=== PATIENT | female | born 1970 | race Caucasian/White ===

== ENCOUNTER → 2016-10-16 | Outpatient (CLI) | payer OTHER ==
--- NOTE | 2016-10-16 20:38 | XR ---
EXAMINATION TYPE: XR lumbar spine 2 or 3V DATE OF EXAM: 10/16/2016 COMPARISON: NONE HISTORY: Back pain TECHNIQUE: 3 views FINDINGS: Vertebra have normal alignment. Disc spaces are normal. Posterior elements are intact. Sacr oiliac joints appear intact. IMPRESSION: Negative lumbar spine exam. Possible right renal calculus.
== END | disposition home or self-care (01) ==
LOC: RADXRMAIN 16:27
PROVIDERS: ATTEND Family Medicine
DX: M54.16 Radiculopathy, lumbar region (principal)
CPT/HCPCS: 72100

== ENCOUNTER → 2018-10-02 | Outpatient (CLI) | payer OTHER ==
--- NOTE | 2018-10-02 10:27 | US ---
EXAMINATION TYPE: US transvaginal DATE OF EXAM: 10/02/2018 COMPARISON: NONE CLINICAL HISTORY: N92.0 Menorrhagia. TECHNIQUE: Transvaginal (TV). Date of LMP: 09/29/2018 EXAM MEASUREMENTS: Uterus: 9.9 x 4.9 x 6.1 cm Endometrial Stripe: 1.1 cm Right Ovary: 2.1 x 1.4 x 1.5 cm Left Ovary: 2.8 x 1.5 x 2.2 cm 1. Uterus: Anteverted wnl 2. Endometrium: wnl 3. Right Ovary: wnl 4. Left Ovary: wnl 5. Bilateral Adnexa: wnl 6. Posterior cul-de-sac: no free fluid IMPRESSION: 1. Normal pelvic ultrasound
--- NOTE | 2018-10-03 11:26 | MM ---
Reason for exam: screening (asymptomatic). Last mammogram was performed 2 years and 9 months ago. History: Took other hormone for 5 years. Physical Findings: A clinical breast exam by your physician is recommended on an annual basis and results should be correlated with mammographic findings. MG 3D Screening Mammo W/Cad Bilateral CC and MLO view(s) were taken. Prior study comparison: January 06, 2016, bilateral MG 3d screening mammo w/cad. There are scattered fibroglandular densities. Asymmetric breast tissue left upper outer quadrant, stable. There is no discrete abnormality. ASSESSMENT: Negative, BI-RAD 1 RECOMMENDATION: Routine screening mammogram of both breasts in 1 year.
== END | disposition home or self-care (01) ==
LOC: RADMAMWWP 09:01
PROVIDERS: ATTEND Obstetrics & Gynecology
DX: Z12.31 Encounter for screening mammogram for malignant neoplasm of breast (principal); N92.0 Excessive and frequent menstruation with regular cycle
CPT/HCPCS: 76830; 77063; 77067

== ENCOUNTER 2020-04-18 13:13 | Emergency (ER) | payer OTHER ==
[2020-04-18 13:38] VITALS: TEMP 98.4
[2020-04-18] MEDS ORDERED: SODIUM CHLORIDE 0.9% 1,000 ML IV STA (14:38)
--- NOTE | 2020-04-18 14:59 | ED ---
General Adult HPI - General Chief complaint: Weakness Stated complaint: weakness/tired Time Seen by Provider: 04/18/20 14:24 Source: patient, RN notes reviewed Mode of arrival: ambulatory Limitations: no limitations - History of Present Illness Initial comments: 50-year-old female presents to the emergency room for a chief complaint of weakness. Patient states that about 10 days ago she developed a sore throat and she was diagnosed with strep. Patient states for about 5 days she took Augmentin. Patient states she started to feel flushed with this and that she may be having an ALLERGIC reaction. She called a telemetry doctor who switched her to amoxicillin who thought this might be less irritating. Patient states she stopped taking it because her throat felt better. Patient states this made her flush as well so she called back and was switched to a Z-Eugenio. This started yesterday. Patient continues to have some generalized weakness and irritated throat. She denies chest pain shortness of breath. 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 ROS Other: All systems not noted in ROS Statement are negative. Past Medical History Past Medical History: Thyroid Disorder History of Any Multi-Drug Resistant Organisms: None Reported Past Surgical History: Cholecystectomy Additional Past Surgical History / Comment(s): labrum repair on both hips Past Psychological History: No Psychological Hx Reported Smoking Status: Never smoker Past Alcohol Use History: None Reported Past Drug Use History: None Reported General Exam Limitations: no limitations General appearance: alert, in no apparent distress Head exam: Present: atraumatic Eye exam: Present: normal appearance, PERRL, EOMI. Absent: scleral icterus, conjunctival injection, periorbital swelling ENT exam: Present: normal exam, normal oropharynx (Uvula midline, no exudates bilaterally), mucous membranes moist, TM's normal bilaterally, normal external ear exam Neck exam: Present: normal inspection, full ROM. Absent: tenderness, meningismus, lymphadenopathy Respiratory exam: Present: normal lung sounds bilaterally. Absent: respiratory distress, wheezes, rales, rhonchi, stridor Cardiovascular Exam: Present: regular rate, normal rhythm, normal heart sounds. Absent: systolic murmur, diastolic murmur, rubs, gallop, clicks GI/Abdominal exam: Present: soft, normal bowel sounds. Absent: distended, tenderness, guarding, rebound, rigid Course Vital Signs 04/18/20 04/18/20 04/18/20 13:35 15:08 16:14 Temperature 98.4 F Pulse Rate 96 101 H 85 Respiratory 20 18 18 Rate Blood Pressure 124/85 130/79 135/85 O2 Sat by Pulse 99 100 98 Oximetry EKG Findings - EKG Comments: EKG Findings:: Normal sinus rhythm, ventricular rate 95, NM interval 148, QTC 42 9 Medical Decision Making - Medical Decision Making Vitals are stable. Patient is well appearing. She does not appear toxic. She is resting comfortably. EKG is nonischemic. His CBC is unremarkable. CMP unremarkable. Urinalysis does not show evidence of infection. Heterophile negative. Chest x-ray shows no acute cardiopulmonary process. Patient does request a TSH be added, she will call back tomorrow for these results. She'll return here for any worsening symptoms. - Lab Data Result diagrams: 04/18/20 15:05 04/18/20 15:05 Lab Results 04/18/20 04/18/20 04/18/20 Range/Units 15:05 15:05 15:05 WBC 11.0 H (3.8-10.6) k/uL RBC 5.06 (3.80-5.40) m/uL Hgb 12.9 (11.4-16.0) gm/dL Hct 39.1 (34.0-46.0) % MCV 77.3 L (80.0-100.0) fL MCH 25.4 (25.0-35.0) pg MCHC 32.9 (31.0-37.0) g/dL RDW 16.5 H (11.5-15.5) % Plt Count 300 (150-450) k/uL MPV 6.8 Neutrophils % 67 % Lymphocytes % 24 % Monocytes % 5 % Eosinophils % 1 % Basophils % 1 % Neutrophils # 7.4 (1.3-7.7) k/uL Lymphocytes # 2.6 (1.0-4.8) k/uL Monocytes # 0.6 (0-1.0) k/uL Eosinophils # 0.1 (0-0.7) k/uL Basophils # 0.1 (0-0.2) k/uL Anisocytosis Slight Microcytosis Slight Sodium 137 (137-145) mmol/L Potassium 4.1 (3.5-5.1) mmol/L Chloride 107 (98-107) mmol/L Carbon Dioxide 24 (22-30) mmol/L Anion Gap 6 mmol/L BUN 10 (7-17) mg/dL Creatinine 0.67 (0.52-1.04) mg/dL Est GFR (CKD-EPI)AfAm >90 (>60 ml/min/1.73 sqM) Est GFR (CKD-EPI)NonAf >90 (>60 ml/min/1.73 sqM) Glucose 100 H (74-99) mg/dL Calcium 9.5 (8.4-10.2) mg/dL Magnesium 2.3 (1.6-2.3) mg/dL Total Bilirubin 0.4 (0.2-1.3) mg/dL AST 26 (14-36) U/L ALT 36 H (4-34) U/L Alkaline Phosphatase 86 (38-126) U/L Total Protein 7.1 (6.3-8.2) g/dL Albumin 4.1 (3.5-5.0) g/dL Urine Color Light Yellow Urine Appearance Clear (Clear) Urine pH 6.0 (5.0-8.0) Ur Specific [place] 1.008 (1.001-1.035) Urine Protein Negative (Negative) Urine Glucose (UA) Negative (Negative) Urine Ketones Negative (Negative) Urine Blood Negative (Negative) Urine Nitrite Negative (Negative) Urine Bilirubin Negative (Negative) Urine Urobilinogen <2.0 (<2.0) mg/dL Ur Leukocyte Esterase Negative (Negative) Heterophile Antibody (Negative) 04/18/20 Range/Units 15:05 WBC (3.8-10.6) k/uL RBC (3.80-5.40) m/uL Hgb (11.4-16.0) gm/dL Hct (34.0-46.0) % MCV (80.0-100.0) fL MCH (25.0-35.0) pg MCHC (31.0-37.0) g/dL RDW (11.5-15.5) % Plt Count (150-450) k/uL MPV Neutrophils % % Lymphocytes % % Monocytes % % Eosinophils % % Basophils % % Neutrophils # (1.3-7.7) k/uL Lymphocytes # (1.0-4.8) k/uL Monocytes # (0-1.0) k/uL Eosinophils # (0-0.7) k/uL Basophils # (0-0.2) k/uL Anisocytosis Microcytosis Sodium (137-145) mmol/L Potassium (3.5-5.1) mmol/L Chloride (98-107) mmol/L Carbon Dioxide (22-30) mmol/L Anion Gap mmol/L BUN (7-17) mg/dL Creatinine (0.52-1.04) mg/dL Est GFR (CKD-EPI)AfAm (>60 ml/min/1.73 sqM) Est GFR (CKD-EPI)NonAf (>60 ml/min/1.73 sqM) Glucose (74-99) mg/dL Calcium (8.4-10.2) mg/dL Magnesium (1.6-2.3) mg/dL Total Bilirubin (0.2-1.3) mg/dL AST (14-36) U/L ALT (4-34) U/L Alkaline Phosphatase (38-126) U/L Total Protein (6.3-8.2) g/dL Albumin (3.5-5.0) g/dL Urine Color Urine Appearance (Clear) Urine pH (5.0-8.0) Ur Specific [place] (1.001-1.035) Urine Protein (Negative) Urine Glucose (UA) (Negative) Urine Ketones (Negative) Urine Blood (Negative) Urine Nitrite (Negative) Urine Bilirubin (Negative) Urine Urobilinogen (<2.0) mg/dL Ur Leukocyte Esterase (Negative) Heterophile Antibody Negative (Negative) Disposition Clinical Impression: Weakness, Pharyngitis Disposition: HOME SELF-CARE Condition: Good Instructions (If sedation given, give patient instructions): Weakness (ED) Additional Instructions: Please take antibiotic as directed. Follow-up with your doctor in one to 2 days. Follow up on TSH results by calling tomorrow to speak to the follow-up vickie cabrera. Return to the emergency room for any worsening symptoms. Is patient prescribed a controlled substance at d/c from ED?: No Referrals: Blair Sarmiento DO [Primary Care Provider] - 1-2 days Time of Disposition: 16:29
[2020-04-18 15:09] VITALS: RESP 18
[2020-04-18 15:23] LABS: Anisocytosis Slight; Basophils # (A) 0.1 k/uL (0-0.2); Basophils % (A) 1 %; Eosinophils # (A) 0.1 k/uL (0-0.7); Eosinophils % (A) 1 %; HCT 39.1 % (34.0-46.0); HGB 12.9 gm/dL (11.4-16.0); Lymphocytes # (A) 2.6 k/uL (1.0-4.8); Lymphocytes % (A) 24 %; MCH 25.4 pg (25.0-35.0); MCHC 32.9 g/dL (31.0-37.0); MCV 77.3 fL (80.0-100.0); Mean Platelet Volume 6.8; Microcytosis Slight; Monocytes # (A) 0.6 k/uL (0-1.0); Monocytes % (A) 5 %; Neutrophils # (A) 7.4 k/uL (1.3-7.7); Neutrophils % (A) 67 %; Platelet Count 300 k/uL (150-450); RBC 5.06 m/uL (3.80-5.40); RDW 16.5 % (11.5-15.5)
[2020-04-18 15:25] LABS: Appearance,Urine Clear (Clear); Bilirubin,Urine Negative (Negative); Blood,Urine Negative (Negative); Color,Urine Light Yellow; Glucose,Urine (UA) Negative (Negative); Ketones,Urine Negative (Negative); Leukocyte Esterase,Urine Negative (Negative); Nitrite,Urine Negative (Negative); Protein,Urine Negative (Negative); Specific Gravity,Urine 1.008 (1.001-1.035); Urobilinogen,Urine <2.0 mg/dL (<2.0)
[2020-04-18 15:28] LABS: ALT 36 U/L (4-34); AST 26 U/L (14-36); African American GFR (CKD) >90 (>60 ml/min/1.73 sqM); Albumin 4.1 g/dL (3.5-5.0); Alkaline Phosphatase 86 U/L (38-126); Anion Gap 6 mmol/L; Blood Urea Nitrogen 10 mg/dL (7-17); Calcium 9.5 mg/dL (8.4-10.2); Carbon Dioxide 24 mmol/L (22-30); Chloride 107 mmol/L (98-107); Glucose 100 mg/dL (74-99); Magnesium 2.3 mg/dL (1.6-2.3); Non-African American GFR(CKD) >90 (>60 ml/min/1.73 sqM); Potassium 4.1 mmol/L (3.5-5.1); Sodium 137 mmol/L (137-145); Total Bilirubin 0.4 mg/dL (0.2-1.3); Total Protein 7.1 g/dL (6.3-8.2)
--- NOTE | 2020-04-18 15:31 | XR ---
EXAMINATION TYPE: XR chest 2V DATE OF EXAM: 04/18/2020 COMPARISON: NONE HISTORY: Chest pain TECHNIQUE: Frontal and lateral views of the chest are obtained. FINDINGS: There is no focal air space opacity. No evidence for pneumothorax. No pleural effusion. The cardiac silhouette size is within normal limits. The osseous structures are grossly intact. IMPRESSION: 1. No acute cardiopulmonary process.
[2020-04-18 16:17] VITALS: BP 135/85; PULSE 85
[2020-04-19 02:13] LABS: T4, Free (Free Thyroxine) 1.14 ng/dL (0.78-2.19)
== END 2020-04-18 16:45 | disposition home or self-care (01) ==
LOC: EC 13:13
DX: J02.9 Acute pharyngitis, unspecified (principal); R53.1 Weakness; E07.9 Disorder of thyroid, unspecified; Z79.890 Hormone replacement therapy; Z88.0 Allergy status to penicillin; Z88.1 Allergy status to other antibiotic agents; Z90.49 Acquired absence of other specified parts of digestive tract
CPT/HCPCS: 36415; 71046; 80053; 81003; 83735; 84439; 84443; 85025; 86308; 93005; 96360; 99285

== ENCOUNTER → 2021-03-16 | Outpatient (CLI) | payer OTHER ==
--- NOTE | 2021-03-17 08:10 | US ---
EXAMINATION TYPE: US transvaginal DATE OF EXAM: 03/16/2021 COMPARISON: US 2019 CLINICAL HISTORY: N93.8 DUB. Bleeding x couple weeks, 4, para 4, history of tubal ligation TECHNIQUE: Transvaginal exam only per ordering physician Date of LMP: 02/28/2021 EXAM MEASUREMENTS: Uterus: 8.7 x 4.2 x 5.5 cm Endometrial Stripe: 1.1 cm Right Ovary: 2.5 x 1.8 x 2.2 cm Left Ovary: 2.2 x 0.8 x 1.0 cm 1. Uterus: anteverted, mildly heterogeneous 2. Endometrium: appears wnl 3. Right Ovary: 1.2cm dominant follicle 4. Left Ovary: wnl 5. Bilateral Adnexa: wnl 6. Posterior cul-de-sac: wnl IMPRESSION: No definite sonographic abnormality is identified.
== END | disposition home or self-care (01) ==
LOC: RADUSWWP 15:20
PROVIDERS: ATTEND Obstetrics & Gynecology
DX: N93.8 Other specified abnormal uterine and vaginal bleeding (principal)
CPT/HCPCS: 76830

== ENCOUNTER → 2021-07-25 | Outpatient (CLI) | payer OTHER ==
--- NOTE | 2021-07-26 08:35 | MM ---
Reason for exam: screening (asymptomatic). Last mammogram was performed 2 years and 10 months ago. History: Took other hormone for 5 years. Physical Findings: A clinical breast exam by your physician is recommended on an annual basis and results should be correlated with mammographic findings. MG 3D Screening Mammo W/Cad Bilateral CC and MLO view(s) were taken. Prior study comparison: October 02, 2018, bilateral MG 3d screening mammo w/cad. January 06, 2016, bilateral MG 3d screening mammo w/cad. There are scattered fibroglandular densities. There is no discrete abnormality. ASSESSMENT: Negative, BI-RAD 1 RECOMMENDATION: Routine screening mammogram of both breasts in 1 year.
== END | disposition home or self-care (01) ==
LOC: RADMAMWWP 11:00
PROVIDERS: ATTEND Obstetrics & Gynecology
DX: Z12.31 Encounter for screening mammogram for malignant neoplasm of breast (principal)
CPT/HCPCS: 77063; 77067

== ENCOUNTER 2021-10-13 08:40 | Day surgery (SDC) | payer OTHER ==
[2021-10-11 12:07] VITALS: BMI 33.2
[~2021-10-13 08:40] MED LIST: LACTATED RINGERS 1,000 ML IV SCH; LIDOCAINE 1% (10MG/ML) FOR IV START INTRADERMA PRN
[2021-10-13 09:22] VITALS: TEMP 98.2
[2021-10-13] MEDS ORDERED: ONDANSETRON 4 MG/2 ML VIAL ONE (09:29)
[2021-10-13] MEDS ORDERED: ONDANSETRON 4 MG/2 ML VIAL IVP ONE (09:36)
[2021-10-13] MEDS ORDERED: PROPOFOL 10 MG/ML 20 ML VIAL IV ONE (09:37)
[2021-10-13] MEDS ORDERED: MIDAZOLAM 2 MG/2 ML VIAL ONE (09:37)
[2021-10-13] MEDS ORDERED: fentaNYL (PF) 50 MCG/ML 2 ML AMP ONE (09:37)
--- NOTE | 2021-10-13 09:42 | P.HPIHPCON ---
History of Present Illness H&P Date: 10/13/21 51-year-old female presents today for screening colonoscopy. She has never had a colonoscopy previously. She denies history of colon cancer. She denies any family history of Crohn's disease, ulcerative colitis and colon cancer. Denies blood in her stool. Consent for Procedure: I have explained the operation/procedure to the patient, including the risks, benefits, side effects, alternative therapies (including not receiving the proposed treatment or service), the likelihood of the patient achieving his/her goals, and potential recuperation problems for the procedure/sedation/analgesia, as well as any blood products, if indicated. I also explained to the patient the risks, benefits and side effects of the alternatives, as well as the risks related to not receiving the proposed procedure, care, treatment, or services. - Review of Systems All systems: negative Past Medical History Past Medical History: Thyroid Disorder History of Any Multi-Drug Resistant Organisms: None Reported Past Surgical History: Cholecystectomy, Tubal Ligation Additional Past Surgical History / Comment(s): labrum repair on both hips Past Anesthesia/Blood Transfusion Reactions: No Reported Reaction Smoking Status: Never smoker - Past Family History Mother Family Medical History: No Reported History Medications and Allergies Home Medications Medication Instructions Recorded Confirmed Type Levothyroxine Sodium [Synthroid] 75 mcg PO DAILY 04/18/20 10/11/21 History Thyroid,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 No significant issues noted on an osteopathic structural exam other than those noted in the History and Physical/Consult. Vital Signs Temp Pulse Resp BP Pulse Ox 98.2 F 92 16 143/80 98 10/13/21 09:10 10/13/21 09:10 10/13/21 09:10 10/13/21 09:10 10/13/21 09:10 - General no distress - Eyes normal ocular movement - Neck trachea midline - Respiratory normal respiratory effort - Abdomen Abdomen: soft, non tender Assessment and Plan Plan: 51-year-old female presents for screening colonoscopy. Risks, benefits and alternatives were provided. Further recommendations after procedure.
--- NOTE | 2021-10-13 09:56 | P.PCN ---
Date of Procedure: 10/13/21 Preoperative Diagnosis: Screening Postoperative Diagnosis: Diverticulosis Procedure(s) Performed: Colonoscopy Anesthesia: MAC Surgeon: Cari Arita Pathology: none sent Condition: stable Disposition: same day Indications for Procedure: 51-year-old female presents today for screening colonoscopy. She denies any blood in her stool. Denies any family history of colon cancer. She has never had a colonoscopy previously. Operative Findings: Diverticulosis Description of Procedure: The patient was brought into the endoscopy suite and placed in left lateral decubitus position and adequate sedation was achieved using conscious sedation. A digital rectal exam was performed and mild internal hemorrhoids were palpated. An endoscope was then placed in the rectum and advanced to the cecum as identified by landmarks including the appendiceal orifice and the ileocecal valve. The prep was good. The colonoscope was then slowly withdrawn, examining for any mucosal abnormality. The cecum, ascending, transverse, descending and sigmoid colon were visualized adequately. There were no large neoplastic lesions throughout the colon. There is no obvious polyps noted throughout the colon. There is mild amount of diverticulosis in the sigmoid colon. Retroflexion was performed in the rectum and internal hemorrhoids were visible. Excess air was removed, the colonoscope withdrawn and the procedure terminated. The patient was then transferred to the recovery unit in stable condition. Repeat colonoscopy should be performed in 10 years.
[2021-10-13 10:20] VITALS: BP 110/73; PULSE 96; RESP 18
== END 2021-10-13 10:50 | disposition home or self-care (01) ==
LOC: ORWHC2ENDO 08:40
PROVIDERS: ATTEND Surgery
DX: Z12.11 Encounter for screening for malignant neoplasm of colon (principal); K57.30 Diverticulosis of large intestine without perforation or abscess without bleeding; K64.8 Other hemorrhoids; E07.9 Disorder of thyroid, unspecified; Z79.890 Hormone replacement therapy; Z88.0 Allergy status to penicillin; Z90.49 Acquired absence of other specified parts of digestive tract; Z98.51 Tubal ligation status; Z98.890 Other specified postprocedural states
CPT/HCPCS: 81025; J2250; J2405; J3010; J2704; G0121; 45378

== ENCOUNTER → 2023-03-22 | Outpatient (CLI) | payer OTHER ==
--- NOTE | 2023-03-24 07:42 | CT ---
EXAMINATION TYPE: CT sinus wo con DATE OF EXAM: 03/22/2023 COMPARISON: None HISTORY: Chronic sinusitis and congestion. Had polyp removal along with surgery for deviated septum [address] DLP: 410.1 mGycm. Automated Exposure Control for Dose Reduction was Utilized. TECHNIQUE: CT scan of the sinuses is performed without contrast, axial images are obtained, coronal r eformatted images are also reviewed. FINDINGS: There are postsurgical changes with partial ethmoidectomy frontal ethmoid air cells. Paranasal sinuses are well aerated and there is no air-fluid level, mucous retention cysts, polyp or mucosal thickening to suggest acute or chronic sinusitis. The nasal cavity is intact. The ostiomeatal complexes are patent. There is no sclerosis or thinning of the osseous roland of the paranasal sinuses. Intraorbital contents appear grossly normal. The mastoid air cells and middle ear cavities are well aerated. IMPRESSION: Postsurgical changes involving the ethmoid sinuses. There is no acute or chronic sinusitis.
== END | disposition home or self-care (01) ==
LOC: RADCTMAIN 17:24
PROVIDERS: ATTEND Otolaryngology
DX: J32.0 Chronic maxillary sinusitis (principal); Z98.890 Other specified postprocedural states
CPT/HCPCS: 70486

== ENCOUNTER → 2023-10-14 | Outpatient (CLI) | payer OTHER ==
--- NOTE | 2023-10-14 11:09 | US ---
EXAMINATION TYPE: US abdomen complete DATE OF EXAM: 10/14/2023 COMPARISON: NONE CLINICAL INDICATION: Female, 53 years old with history of R10.11 ABD PAIN; RUQ pain gallbladder remov ed. TECHNIQUE: Multiple sonographic images of the abdomen are obtained. FINDINGS: EXAM MEASUREMENTS: Liver Length: 13.7 cm Gallbladder Wall: Surgically absent CBD: .5 cm Spleen: 9.8 cm Right Kidney: 10.3 x 3.6 x 4.3 cm Left Kidney: 9.7 x 4.7 x 3.8 cm EMPLOYMENT SERVICES DIRECTOR NOTES: Pancreas: Obscured by bowel gas Liver: Increased attenuation Gallbladder: Surgically absent CBD: wnl Spleen: wnl Right Kidney: No hydronephrosis or masses seen Left Kidney: No hydronephrosis or masses seen Upper IVC: wnl Abd Aorta: wnl The liver demonstrates slightly increased diffuse echogenicity. No evidence for focal lesion. Noncirr hotic morphology. The intrahepatic portion of the IVC and proximal abdominal aorta are within normal limits. The gallbladder is surgically absent. Common bile duct is unremarkable. The pancreas is obsc ured by overlying bowel gas. The spleen is unremarkable. Kidneys are symmetric and free of hydroneph rosis. No renal lesions are seen. No nephrolithiasis. IMPRESSION: 1. No ultrasound evidence for acute process. 2. Post cholecystectomy changes. 3. Hepatic steatosis.
== END | disposition home or self-care (01) ==
LOC: RADUSWWP 09:26
PROVIDERS: ATTEND Family Medicine
DX: K76.0 Fatty (change of) liver, not elsewhere classified (principal); Z90.49 Acquired absence of other specified parts of digestive tract
CPT/HCPCS: 76700

== ENCOUNTER 2024-03-16 07:59 | Day surgery (SDC) | payer OTHER ==
[2024-03-16] MEDS: IV FLUID CONTINUATION 1,000 ML IV ONE (08:38)
[2024-03-16 08:40] VITALS: RESP 16; TEMP 97
[2024-03-16] MEDS: LACTATED RINGERS 1,000 ML IV SCH (08:41)
[2024-03-16] MEDS ORDERED: PROPOFOL 10 MG/ML 20 ML VIAL IV ONE (08:50)
[2024-03-16] MEDS ORDERED: LIDOCAINE 2% (PF) 20 MG/ML 5 ML VIAL ONE (08:50)
[2024-03-16 09:35] VITALS: BP 106/78; PULSE 69
--- NOTE | 2024-03-16 13:13 | P.OP ---
Date of Procedure: 03/16/24 Preoperative Diagnosis: GERD Postoperative Diagnosis: 1. Gastritis 2. Hiatal Hernia Procedure(s) Performed: EGD with Cold Biopsy Anesthesia: other (Sedation) Surgeon: Fermin Puente Pathology: other (Antral Biopsies) Condition: stable Disposition: PACU Description of Procedure: Informed consent was obtained. The procedure, its risks, benefits, and alternatives were discussed. The patient was placed in the left lateral decubitus position.. The patient was sedated by anesthesia. The endoscope was inserted into the oropharynx and guided under direct vision into the esophagus, stomach, and duodenum. The duodenal bulb and second portion were unremarkable. The scope was withdrawn to the stomach and retroflexed. There was no increased fluid, food or secretions in the upper gastrointestinal tract. There was some gastritis appreciated. Biopsies were obtained for Helicobacter pylori. No erosions or ulcers. The scope was withdrawn to the esophagus. No Barretts or esophagitis. There was a hiatal hernia appreciated. The patient tolerated the procedure very well. The patient was then transferred to the recovery area in good condition. There were no apparent complications.
== END 2024-03-16 09:54 | disposition home or self-care (01) ==
LOC: ORWHC2ENDO 07:59
PROVIDERS: ATTEND Surgery
DX: K21.9 Gastro-esophageal reflux disease without esophagitis (principal); K29.70 Gastritis, unspecified, without bleeding; K44.9 Diaphragmatic hernia without obstruction or gangrene; E03.9 Hypothyroidism, unspecified; Z79.890 Hormone replacement therapy; Z98.51 Tubal ligation status; Z90.49 Acquired absence of other specified parts of digestive tract; Z98.890 Other specified postprocedural states; Z88.1 Allergy status to other antibiotic agents; Z88.0 Allergy status to penicillin
CPT/HCPCS: 81025; 43239; J2704; J2003; 88305

== ENCOUNTER 2024-04-06 18:47 | Emergency (ER) | payer OTHER ==
--- NOTE | 2024-04-06 20:41 | ED ---
General Adult HPI - General Chief complaint: Arrhythmia/Palpitations Stated complaint: Heart Palpitations Time Seen by Provider: 04/06/24 19:06 Source: patient Mode of arrival: ambulatory Limitations: no limitations - History of Present Illness Initial comments: Dictation was produced using [employer] dictation software. please excuse any grammatical, word or spelling errors. Chief Complaint: 54-year-old female presents emergency department with fever, c onstitutional symptoms palpitations and headache History of Present Illness: Patient is 54-year-old female presents with multiple complaints. States that her symptoms initially began the day before . She started to have fevers. She also had a mild cough. States that her symptoms abated for couple days and today it returned. States that she has a mild nonsevere headache. States that she feels congested in the nose. Denies any burning urination. No chest pain. She does have a mild cough. No obvious sick contacts. D denies abdominal pain or diarrhea. Patient also reported having had a bout of palpitations last night that lasted for couple seconds with a heart rate up to 140. The ROS documented in this emergency department record has been reviewed and confirmed by me. Those systems with pertinent positive or negative responses have been documented in the HPI. All other systems are other negative and/or noncontributory. - Related Data Home Medications Medication Instructions Recorded Confirmed Levothyroxine Sodium [Synthroid] 75 mcg PO DAILY 04/18/20 04/06/24 Thyroid,Pork [Process Tank Tender Thyroid] 30 mg PO DAILY 04/18/20 04/06/24 Previous Rx's Medication Instructions Recorded Doxycycline [Vibramycin] 100 mg PO BID 5 Days #10 capsule 04/06/24 Allergies Allergy/AdvReac Type Severity Reaction Status Date / Time levofloxacin [From Levaquin] Allergy Unknown Verified 04/06/24 20:18 amoxicillin AdvReac WEAKNESS, Verified 04/06/24 20:18 CAN'T STAND clavulanic acid AdvReac WEKNESS Verified 04/06/24 20:18 [From Augmentin] AND CAN'T STAND Review of Systems ROS Statement: Those systems with pertinent positive or pertinent negative responses have been documented in the HPI. ROS Other: All systems not noted in ROS Statement are negative. Past Medical History Past Medical History: Thyroid Disorder History of Any Multi-Drug Resistant Organisms: None Reported Past Surgical History: Cholecystectomy, Orthopedic Surgery, Tubal Ligation Additional Past Surgical History / Comment(s): labrum repair on both hips, sinus polyp removed Past Anesthesia/Blood Transfusion Reactions: No Reported Reaction Past Psychological History: No Psychological Hx Reported Smoking Status: Never smoker Past Alcohol Use History: None Reported Past Drug Use History: None Reported - Past Family History Mother Family Medical History: No Reported History General Exam - General Exam Comments Initial Comments: PHYSICAL EXAM: General Impression: Alert and oriented x3, not in acute distress HEENT: Normocephalic atraumatic, extra-ocular movements intact, pupils equal and reactive to light bilaterally, mucous membranes moist. Cardiovascular: Heart regular rate and rhythm Chest: Able to complete full sentences, no retractions, no tachypnea Abdomen: abdomen soft, non-tender, non-distended, no organomegaly Musculoskeletal: Pulses present and equal in all extremities, no peripheral edema Motor: no focal deficits noted Neurological: CN II-XII grossly intact, no focal motor or sensory deficits noted Skin: Intact with no visualized rashes Psych: Normal affect and mood Limitations: no limitations Course Vital Signs 04/06/24 04/06/24 04/06/24 18:55 20:00 21:00 Temperature 97.7 F Pulse Rate 86 75 85 Respiratory 18 24 22 Rate Blood Pressure 113/77 111/65 112/55 O2 Sat by Pulse 96 96 97 Oximetry 04/06/24 22:00 Temperature Pulse Rate 79 Respiratory 16 Rate Blood Pressure 110/57 O2 Sat by Pulse 98 Oximetry EKG Findings - EKG Comments: EKG Findings:: My EKG interpretation: Ventricular rate 83, sinus rhythm,. 174, QRS 80, QTc 4 9. No IA prolongation, no QTC prolongation, no ST or T-wave changes noted. Overall, this EKG is unremarkable Medical Decision Making - Medical Decision Making Was pt. sent in by a medical professional or institution (, PA, TRAVELING SALES REPRESENTATIVE, urgent c are, hospital, or [facility]...) When possible be specific @ -No Did you speak to anyone other than the patient for history (EMS, parent, family, police, friend...)? What history was obtained from this source @ -No Did you review nursing and triage notes (agree or disagree)? Why? @ -I reviewed and agree with nursing and triage notes Were old charts reviewed (outside hosp., previous admission, EMS record, old EKG, old radiological studies, urgent care reports/EKG's, [facility] records)? Report findings @ -No old charts were reviewed Differential Diagnosis (chest pain, altered mental status, abdominal pain women, abdominal pain men, vaginal bleeding, musculoskeletal, weakness, fever, dyspnea, syncope, headache, dizziness, GI bleed, back pain, seizure, CVA, palpatations, mental health)? @ -Differential Fever: Pneumonia, viral URI, endocarditis, myocarditis, pericarditis, otitis, sinusitis, peritonsillar Abscess, retropharyngeal Abscess, epiglottitis, peritonitis, appendicitis, [place] cystitis, diverticulitis, hepatitis, colitis, UTI, PID, TOA, pyelonephritis, prostatitis, epididymitis, meningitis, encephalitis, pulmonary embolism, CVA, thyroid storm, pancreatitis, adrenal crisis, cavernous sinus thrombosis, this is not meant to be an all-inclusive list. EKG interpreted by me (3pts min.). @ -See above X-rays interpreted by me (1pt min.). @ -Chest x-ray nonacute CT interpreted by me (1pt min.). @ -CT brain negative U/S interpreted by me (1pt. min.). @ -None done What testing was considered but not performed or refused? (CT, X-rays, U/S, labs)? Why? @ -None What meds were considered but not given or refused? Why? @ -None Was smoking cessation discussed for >3mins.? @ -No Were there social determinants of health that impacted care today? How? (Homelessness, low income, unemployed, alcoholism, drug addiction, transportation, low edu. Level, literacy, decrease access to med. care, fdc, rehab)? @ -No Was there de-escalation of care discussed even if they declined (Discuss DNR or withdrawal of care, Hospice)? DNR status @ -No What co-morbidities impacted this encounter? (DM, HTN, Smoking, COPD, CAD, Cancer, CVA, ARF, Chemo, Hep., AIDS, mental health diagnosis, sleep apnea, morbid obesity)? @ -None Was patient admitted / discharged? Hospital course, mention meds given and route, prescriptions, significant lab abnormalities, going to OR and other pertinent info. @ -54-year-old female with multiple complaints including heart palpitations, fever, nasal congestion, headache and fevers. Vital signs upon arrival are within acceptable limits. Physical examination is benign. Laboratory evaluation is unremarkable. CT brain negative for acute intracranial processes. Chest x-ray nonacute. Patient does have symptoms concerning for sinusitis she also has sinus disease noted on her CT of her brain. Patient prescription for antibiotics. Patient feeling significantly better after Toradol and IV fluids. Patient told to follow-up with her primary care doctor. Did you discuss the management of the patient with other professionals (tiara quiñones i.e. , PA, TRAVELING SALES REPRESENTATIVE, lab, RT, psych nurse, social worker delinquency prevention, emission specialist, teacher, border patrol officer, gearcase assembler)? Give summary @ -No Was critical care preformed (if so, how long)? @ -No Undiagnosed new problem with uncertain prognosis? @ -No Drug Therapy requiring intensive monitoring for toxicity (Heparin, Nitro, Insulin, Cardizem)? @ -No Were any procedures done? @ -No Diagnosis/symptom? Acute, or Chronic, or Acute on Chronic? Uncomplicated (without systemic symptoms) or Complicated (systemic symptoms)? @ -Sinusitis Side effects of treatment? @ -No Exacerbation, Progression, or Severe Exacerbation? @ -No Poses a threat to life or bodily function? How? (Chest pain, [place], [place], pneumonia, PE, COPD, DKA, ARF, appy, cholecystitis, CVA, Diverticulitis, Homicidal, Suicidal, threat to staff... and all critical care pts) @ -No - Lab Data Result diagrams: 04/06/24 19:30 04/06/24 19:30 Lab Results 04/06/24 04/06/24 04/06/24 Range/Units 19:30 19:30 19:30 WBC 5.2 (3.8-10.6) k/uL RBC 5.65 H (3.80-5.40) m/uL Hgb 14.8 (11.4-16.0) gm/dL Hct 45.2 (34.0-46.0) % MCV 80.0 (80.0-100.0) fL MCH 26.2 (25.0-35.0) pg MCHC 32.8 (31.0-37.0) g/dL RDW 15.6 H (11.5-15.5) % Plt Count 119 L (150-450) k/uL MPV 8.7 Neutrophils % 69 % Lymphocytes % 23 % Monocytes % 4 % Eosinophils % 0 % Basophils % 1 % Neutrophils # 3.6 (1.3-7.7) k/uL Lymphocytes # 1.2 (1.0-4.8) k/uL Monocytes # 0.2 (0-1.0) k/uL Eosinophils # 0.0 (0-0.7) k/uL Basophils # 0.0 (0-0.2) k/uL PT 10.5 (10.0-12.5) sec INR 0.9 (<1.2) APTT 26.7 (22.0-30.0) sec Sodium 135 L (137-145) mmol/L Potassium 3.4 L (3.5-5.1) mmol/L Chloride 101 (98-107) mmol/L Carbon Dioxide 28 (22-30) mmol/L Anion Gap 6 mmol/L BUN 12 (7-17) mg/dL Creatinine 0.67 (0.52-1.04) mg/dL Est GFR (CKD-EPI)AfAm >90 (>60 ml/min/1.73 sqM) Est GFR (CKD-EPI)NonAf >90 (>60 ml/min/1.73 sqM) Glucose 114 H (74-99) mg/dL Calcium 9.2 (8.4-10.2) mg/dL Magnesium 1.9 (1.6-2.3) mg/dL Total Bilirubin 0.6 (0.2-1.3) mg/dL AST 85 H (14-36) U/L ALT 112 H (4-34) U/L Alkaline Phosphatase 127 H (38-126) U/L Troponin I (0.000-0.034) ng/mL Total Protein 6.6 (6.3-8.2) g/dL Albumin 3.9 (3.5-5.0) g/dL Urine Color Urine Appearance (Clear) Urine pH (5.0-8.0) Ur Specific [place] (1.001-1.035) Urine Protein (Negative) Urine Glucose (UA) (Negative) Urine Ketones (Negative) Urine Blood (Negative) Urine Nitrite (Negative) Urine Bilirubin (Negative) Urine Urobilinogen (<2.0) mg/dL Ur Leukocyte Esterase (Negative) Urine RBC (0-5) /hpf Urine WBC (0-5) /hpf Ur Squamous Epith Cells (0-4) /hpf Urine Mucus (None) /hpf Influenza Type A (PCR) (Not Detectd) Influenza Type B (PCR) (Not Detectd) RSV (PCR) (Not Detectd) SARS-CoV-2 (PCR) (Not Detectd) 04/06/24 04/06/24 04/06/24 Range/Units 19:30 20:57 22:04 WBC (3.8-10.6) k/uL RBC (3.80-5.40) m/uL Hgb (11.4-16.0) gm/dL Hct (34.0-46.0) % MCV (80.0-100.0) fL MCH (25.0-35.0) pg MCHC (31.0-37.0) g/dL RDW (11.5-15.5) % Plt Count (150-450) k/uL MPV Neutrophils % % Lymphocytes % % Monocytes % % Eosinophils % % Basophils % % Neutrophils # (1.3-7.7) k/uL Lymphocytes # (1.0-4.8) k/uL Monocytes # (0-1.0) k/uL Eosinophils # (0-0.7) k/uL Basophils # (0-0.2) k/uL PT (10.0-12.5) sec INR (<1.2) APTT (22.0-30.0) sec Sodium (137-145) mmol/L Potassium (3.5-5.1) mmol/L Chloride (98-107) mmol/L Carbon Dioxide (22-30) mmol/L Anion Gap mmol/L BUN (7-17) mg/dL Creatinine (0.52-1.04) mg/dL Est GFR (CKD-EPI)AfAm (>60 ml/min/1.73 sqM) Est GFR (CKD-EPI)NonAf (>60 ml/min/1.73 sqM) Glucose (74-99) mg/dL Calcium (8.4-10.2) mg/dL Magnesium (1.6-2.3) mg/dL Total Bilirubin (0.2-1.3) mg/dL AST (14-36) U/L ALT (4-34) U/L Alkaline Phosphatase (38-126) U/L Troponin I <0.012 (0.000-0.034) ng/mL Total Protein (6.3-8.2) g/dL Albumin (3.5-5.0) g/dL Urine Color Light Yellow Urine Appearance Clear (Clear) Urine pH 5.5 (5.0-8.0) Ur Specific [place] 1.010 (1.001-1.035) Urine Protein Negative (Negative) Urine Glucose (UA) Negative (Negative) Urine Ketones Negative (Negative) Urine Blood Negative (Negative) Urine Nitrite Negative (Negative) Urine Bilirubin Negative (Negative) Urine Urobilinogen <2.0 (<2.0) mg/dL Ur Leukocyte Esterase Trace H (Negative) Urine RBC 1 (0-5) /hpf Urine WBC 4 (0-5) /hpf Ur Squamous Epith Cells 5 H (0-4) /hpf Urine Mucus Rare H (None) /hpf Influenza Type A (PCR) Not Detected (Not Detectd) Influenza Type B (PCR) Not Detected (Not Detectd) RSV (PCR) Not Detected (Not Detectd) SARS-CoV-2 (PCR) Not Detected (Not Detectd) Disposition Clinical Impression: Sinusitis Disposition: HOME SELF-CARE Condition: Fair Instructions (If sedation given, give patient instructions): Sinusitis (ED) Prescriptions: Doxycycline [Vibramycin] 100 mg PO BID 5 Days #10 capsule Is patient prescribed a controlled substance at d/c from ED?: No Referrals: Blair Sarmiento DO [Primary Care Provider] - 1-2 days Time of Disposition: 23:19
[2024-04-06 20:49] LABS: Basophils % (A) 1 %; Eosinophils % (A) 0 %; HCT 45.2 % (34.0-46.0); HGB 14.8 gm/dL (11.4-16.0); Lymphocytes # (A) 1.2 k/uL (1.0-4.8); Lymphocytes % (A) 23 %; MCH 26.2 pg (25.0-35.0); MCHC 32.8 g/dL (31.0-37.0); Mean Platelet Volume 8.7; Monocytes # (A) 0.2 k/uL (0-1.0); Monocytes % (A) 4 %; Neutrophils # (A) 3.6 k/uL (1.3-7.7); Neutrophils % (A) 69 %; Platelet Count 119 k/uL (150-450); RBC 5.65 m/uL (3.80-5.40); RDW 15.6 % (11.5-15.5); WBC 5.2 k/uL (3.8-10.6)
--- NOTE | 2024-04-06 20:56 | XR ---
EXAMINATION TYPE: XR chest 2V DATE OF EXAM: 04/06/2024 8:47 PM COMPARISON: None CLINICAL INDICATION: Female, 54 years old with history of dysrhythmia; [facility] TECHNIQUE: XR chest 2V Frontal and lateral views of the chest. FINDINGS: Lungs/Pleura: There is no evidence of pleural effusion, focal consolidation, or pneumothorax. Pulmonary vascularity: Unremarkable. Heart/mediastinum: Cardiomediastinal silhouette is unremarkable. Musculoskeletal: No acute osseous pathology. IMPRESSION: No acute cardiopulmonary disease/process. [facility], , 04/06/2024 8:54 PM
[2024-04-06] MEDS: SODIUM CHLORIDE 0.9% 1,000 ML IV STA (20:57)
[2024-04-06 21:08] LABS: INR 0.9 (<1.2); Partial Thromboplastin Time 26.7 sec (22.0-30.0); Prothrombin Time 10.5 sec (10.0-12.5)
[2024-04-06 21:12] LABS: ALT 112 U/L (4-34); AST 85 U/L (14-36); African American GFR (CKD) >90 (>60 ml/min/1.73 sqM); Albumin 3.9 g/dL (3.5-5.0); Alkaline Phosphatase 127 U/L (38-126); Anion Gap 6 mmol/L; Blood Urea Nitrogen 12 mg/dL (7-17); Calcium 9.2 mg/dL (8.4-10.2); Carbon Dioxide 28 mmol/L (22-30); Chloride 101 mmol/L (98-107); Glucose 114 mg/dL (74-99); Magnesium 1.9 mg/dL (1.6-2.3); Non-African American GFR(CKD) >90 (>60 ml/min/1.73 sqM); Potassium 3.4 mmol/L (3.5-5.1); Sodium 135 mmol/L (137-145); Total Bilirubin 0.6 mg/dL (0.2-1.3); Total Protein 6.6 g/dL (6.3-8.2)
[2024-04-06 21:21] LABS: Appearance,Urine Clear (Clear); Bilirubin,Urine Negative (Negative); Blood,Urine Negative (Negative); Color,Urine Light Yellow; Glucose,Urine (UA) Negative (Negative); Ketones,Urine Negative (Negative); Leukocyte Esterase,Urine Trace (Negative); Mucus,Urine Rare /hpf; Nitrite,Urine Negative (Negative); PH, Urine 5.5 (5.0-8.0); Protein,Urine Negative (Negative); RBC,Urine 1 /hpf (0-5); Squamous Epithelial Cell,Urine 5 /hpf (0-4); Urobilinogen,Urine <2.0 mg/dL (<2.0); WBC,Urine 4 /hpf (0-5)
--- NOTE | 2024-04-06 21:45 | CT ---
EXAMINATION TYPE: CT brain wo con DATE OF EXAM: 04/06/2024 9:35 PM COMPARISON: None. CLINICAL INDICATION: Female, 54 years old with history of headache, headache TECHNIQUE: Brain: Axial CT images of the brain were obtained with coronal and sagittal reformats created and rev iewed. Contrast used: None. Oral contrast used: None. CT DLP: 1064 mGycm, Automated exposure control for dose reduction was used. FINDINGS: Brain: Extra-axial spaces: No abnormal extra-axial fluid collections. Ventricular system: Within normal limits Cerebral parenchyma: No acute intraparenchymal hemorrhage or mass effect. The garcia-white junction is well differentiated. Cerebellum: Unremarkable. Mass effect: No evidence of midline shift. Intracranial vasculature: unremarkable Soft tissues: Normal. Calvarium/osseous structures: No depressed skull fracture. Paranasal sinuses and mastoid air cells: Mild scattered paranasal sinus disease. Visualized orbits: Orbital contents are intact. IMPRESSION: No acute intracranial process. [facility], , 04/06/2024 9:43 PM
[2024-04-06] MEDS: KETOROLAC 15 MG/ML 1 ML VIAL IVP STA (21:57)
--- NOTE | 2024-04-06 23:45 | ED ---
Medical Decision Making - Lab Data Result diagrams: 04/06/24 19:30 04/06/24 19:30 Lab Results 04/06/24 04/06/24 04/06/24 Range/Units 19:30 19:30 19:30 WBC 5.2 (3.8-10.6) k/uL RBC 5.65 H (3.80-5.40) m/uL Hgb 14.8 (11.4-16.0) gm/dL Hct 45.2 (34.0-46.0) % MCV 80.0 (80.0-100.0) fL MCH 26.2 (25.0-35.0) pg MCHC 32.8 (31.0-37.0) g/dL RDW 15.6 H (11.5-15.5) % Plt Count 119 L (150-450) k/uL MPV 8.7 Neutrophils % 69 % Lymphocytes % 23 % Monocytes % 4 % Eosinophils % 0 % Basophils % 1 % Neutrophils # 3.6 (1.3-7.7) k/uL Lymphocytes # 1.2 (1.0-4.8) k/uL Monocytes # 0.2 (0-1.0) k/uL Eosinophils # 0.0 (0-0.7) k/uL Basophils # 0.0 (0-0.2) k/uL PT 10.5 (10.0-12.5) sec INR 0.9 (<1.2) APTT 26.7 (22.0-30.0) sec Sodium 135 L (137-145) mmol/L Potassium 3.4 L (3.5-5.1) mmol/L Chloride 101 (98-107) mmol/L Carbon Dioxide 28 (22-30) mmol/L Anion Gap 6 mmol/L BUN 12 (7-17) mg/dL Creatinine 0.67 (0.52-1.04) mg/dL Est GFR (CKD-EPI)AfAm >90 (>60 ml/min/1.73 sqM) Est GFR (CKD-EPI)NonAf >90 (>60 ml/min/1.73 sqM) Glucose 114 H (74-99) mg/dL Calcium 9.2 (8.4-10.2) mg/dL Magnesium 1.9 (1.6-2.3) mg/dL Total Bilirubin 0.6 (0.2-1.3) mg/dL AST 85 H (14-36) U/L ALT 112 H (4-34) U/L Alkaline Phosphatase 127 H (38-126) U/L Troponin I (0.000-0.034) ng/mL Total Protein 6.6 (6.3-8.2) g/dL Albumin 3.9 (3.5-5.0) g/dL Urine Color Urine Appearance (Clear) Urine pH (5.0-8.0) Ur Specific [place] (1.001-1.035) Urine Protein (Negative) Urine Glucose (UA) (Negative) Urine Ketones (Negative) Urine Blood (Negative) Urine Nitrite (Negative) Urine Bilirubin (Negative) Urine Urobilinogen (<2.0) mg/dL Ur Leukocyte Esterase (Negative) Urine RBC (0-5) /hpf Urine WBC (0-5) /hpf Ur Squamous Epith Cells (0-4) /hpf Urine Mucus (None) /hpf Influenza Type A (PCR) (Not Detectd) Influenza Type B (PCR) (Not Detectd) RSV (PCR) (Not Detectd) SARS-CoV-2 (PCR) (Not Detectd) 04/06/24 04/06/24 04/06/24 Range/Units 19:30 20:57 22:04 WBC (3.8-10.6) k/uL RBC (3.80-5.40) m/uL Hgb (11.4-16.0) gm/dL Hct (34.0-46.0) % MCV (80.0-100.0) fL MCH (25.0-35.0) pg MCHC (31.0-37.0) g/dL RDW (11.5-15.5) % Plt Count (150-450) k/uL MPV Neutrophils % % Lymphocytes % % Monocytes % % Eosinophils % % Basophils % % Neutrophils # (1.3-7.7) k/uL Lymphocytes # (1.0-4.8) k/uL Monocytes # (0-1.0) k/uL Eosinophils # (0-0.7) k/uL Basophils # (0-0.2) k/uL PT (10.0-12.5) sec INR (<1.2) APTT (22.0-30.0) sec Sodium (137-145) mmol/L Potassium (3.5-5.1) mmol/L Chloride (98-107) mmol/L Carbon Dioxide (22-30) mmol/L Anion Gap mmol/L BUN (7-17) mg/dL Creatinine (0.52-1.04) mg/dL Est GFR (CKD-EPI)AfAm (>60 ml/min/1.73 sqM) Est GFR (CKD-EPI)NonAf (>60 ml/min/1.73 sqM) Glucose (74-99) mg/dL Calcium (8.4-10.2) mg/dL Magnesium (1.6-2.3) mg/dL Total Bilirubin (0.2-1.3) mg/dL AST (14-36) U/L ALT (4-34) U/L Alkaline Phosphatase (38-126) U/L Troponin I <0.012 (0.000-0.034) ng/mL Total Protein (6.3-8.2) g/dL Albumin (3.5-5.0) g/dL Urine Color Light Yellow Urine Appearance Clear (Clear) Urine pH 5.5 (5.0-8.0) Ur Specific [place] 1.010 (1.001-1.035) Urine Protein Negative (Negative) Urine Glucose (UA) Negative (Negative) Urine Ketones Negative (Negative) Urine Blood Negative (Negative) Urine Nitrite Negative (Negative) Urine Bilirubin Negative (Negative) Urine Urobilinogen <2.0 (<2.0) mg/dL Ur Leukocyte Esterase Trace H (Negative) Urine RBC 1 (0-5) /hpf Urine WBC 4 (0-5) /hpf Ur Squamous Epith Cells 5 H (0-4) /hpf Urine Mucus Rare H (None) /hpf Influenza Type A (PCR) Not Detected (Not Detectd) Influenza Type B (PCR) Not Detected (Not Detectd) RSV (PCR) Not Detected (Not Detectd) SARS-CoV-2 (PCR) Not Detected (Not Detectd) Disposition Clinical Impression: Sinusitis Disposition: HOME SELF-CARE Condition: Fair Instructions (If sedation given, give patient instructions): Sinusitis (ED) Prescriptions: methylPREDNISolone Dose Pack [Medrol Dose Pack] 4 mg PO DIRECTED #1 packet Doxycycline [Vibramycin] 100 mg PO BID 5 Days #10 capsule Is patient prescribed a controlled substance at d/c from ED?: No Referrals: Blair Sarmiento DO [Primary Care Provider] - 1-2 days
[2024-04-07 00:10] VITALS: BP 107/61; PULSE 70; RESP 14; TEMP 97.9
== END 2024-04-06 23:50 | disposition home or self-care (01) ==
LOC: EC 18:47
DX: J32.9 Chronic sinusitis, unspecified (principal); Z88.0 Allergy status to penicillin; Z88.1 Allergy status to other antibiotic agents; Z11.52 Encounter for screening for COVID-19
CPT/HCPCS: 36415; 93005; 80053; 83735; 84484; 85025; 85610; 85730; 81001; 87636; 71046; 70450; 99285; 96374; 96361; J1885